=== PATIENT | female | born 1965 | race American Indian/Alaskan Native ===

== ENCOUNTER 2023-10-02 16:29 | Emergency (ER) | payer MEDICAID, OTHER ==
[2023-10-02] MEDS ORDERED: traMADol 50 MG Tab PO ONE (18:04)
[2023-10-02] MEDS ORDERED: Cyclobenzaprine 10 MG Tab PO ONE (18:05)
== END 2023-10-02 18:48 | disposition home or self-care (01) ==
LOC: FB.ED 16:29
DX: M47.892 Other spondylosis, cervical region (principal); M50.30 Other cervical disc degeneration, unspecified cervical region; M54.12 Radiculopathy, cervical region; F17.210 Nicotine dependence, cigarettes, uncomplicated; E11.9 Type 2 diabetes mellitus without complications; Z79.84 Long term (current) use of oral hypoglycemic drugs
CPT/HCPCS: 72125; 72128; 99283; A9270-GY